=== PATIENT | male | born 1990 | race Caucasian/White ===

== ENCOUNTER 2021-02-12 13:18 | Emergency (ER) | payer OTHER, SELFPAY ==
[2021-02-12 13:20] VITALS: BP 131/80; PULSE 78; RESP 20; TEMP 36.3; O2SAT 100
--- NOTE | 2021-02-12 14:44 | ED.DENTAL ---
HPI - Dental/Oral General Chief complaint: Dental/Oral Stated complaint: tooth Time Seen by Provider: 02/12/21 14:23 Source: patient History of Present Illness HPI Narrative: Patient presents with right lower jaw pain. Reports a history of these dental filling falling out several months ago has been treated with antibiotics he has been trying to get into see a dentist that his tooth pulled and has an appointment scheduled for April. Over the past few days he has had increasing pain around that tooth with lower jaw swelling. His pain is achy, radiates up into his ear, worse with chewing or moving his jaw. Denies any swelling denies any fevers he denies any shortness of breath. MD Complaint: tooth pain Teeth map: 1. pain Related Data Allergies Allergy/AdvReac Type Severity Reaction Status Date / Time No Known Allergies Allergy Verified 02/12/21 13:23 Review of Systems Review of Systems: CONSTITUTIONAL: Denies fever, chills, or sweats. EYES: Denies visual changes, redness, or discharge. ENT: Denies rhinorrhea, congestion, sore throat, or otalgia. CARDIOVASCULAR: Denies chest pain, palpitations, or edema. RESPIRATORY: Denies cough or dyspnea. GASTROINTESTINAL: Denies abdominal pain, nausea, vomiting, or diarrhea. GENITOURINARY: Denies dysuria or hematuria. SKIN: Denies rash or itching. MUSCULOSKELETAL: Denies back pain, joint pain, or myalgia. NEUROLOGIC: Denies headache, numbness, dizziness, or weakness. PSYCHIATRIC: Denies anxiety or depression. All systems reviewed & are unremarkable except as noted in HPI and below PMFSH Past Medical History Medical History (Updated 02/12/21 @ 15:00 by Manoj Chauhan MD) Dental abscess Patient denies significant medical history Social History Social History (Updated 02/12/21 @ 14:53 by Manoj Chauhan MD) Substance use: never Exam Narrative: GENERAL: Well-appearing, well-nourished, and in no acute distress. HEAD: Normocephalic, atraumatic. EYES: PERRLA and EOMI. ENT: Nares clear, no rhinorrhea or epistaxis. Mucous membranes moist. Fractured tooth 30 with mild edema and erythema in the area tenderness palpation of the tooth no tenderness with palpation under the tongue or under the mandible NECK: Supple. No masses. No JVD EXTREMITIES: Normal range of motion. No edema. SKIN: Warm, dry, no rash. NEURO: No focal deficits. Alert and oriented x3. PSYCH: Normal mood and affect. Course Vital Signs Vital signs: Vital Signs Temperature 36.3 C L 02/12/21 13:20 Pulse Rate 78 02/12/21 13:20 Respiratory Rate 20 02/12/21 13:20 Blood Pressure 131/80 02/12/21 13:20 Pulse Oximetry 100 02/12/21 13:20 Temperature 36.3 C L 02/12/21 13:20 Pulse Rate 78 02/12/21 13:20 Respiratory Rate 20 02/12/21 13:20 Blood Pressure 131/80 02/12/21 13:20 Pulse Oximetry 100 02/12/21 13:20 MDM - Dental/Oral MDM Narrative Medical decision making narrative: H&P as above, vss, pt looks clinically well, exam pain and swelling around tooth number 30, labs/img considered, symptomatic relief available as needed, on reevaluation pt continues to looks clinically well. Suspect dental abscess, dns osteomyelitis, severe sepsis, Chaitanya's angina. plan to tx/monitor as op w/ pcm f/u findings/plan discussed with pt, pt agree/comfortable with plan, return precautions given Discharge Plan Discharge Clinical Impression: Abscess, dental Patient Disposition: Home, Self-Care Condition: Improved Instructions: Antibiotic Form, Dental Abscess (ED) Additional Instructions: Please return if your symptoms worsen or fail to improve. If you develop a fever, can not eat/drink anything or if you have any other concerns. Prescriptions: New amoxicillin-pot clavulanate [Augmentin] 875-125 mg tablet 1 tablet PO Q12H 7 Days Qty: 14 RF: 0 acetaminophen-codeine 300-15 mg tablet 1 tablet PO Q8H PRN (Reason: pain) Qty: 14 RF: 0 Follow-up/Referrals: Ratna Retana M
== END 2021-02-12 15:11 | disposition home or self-care (01) ==
PROVIDERS: Emergency Provider Emergency Medicine; PCP Family Medicine
DX: K04.7 Periapical abscess without sinus (principal)
CPT/HCPCS: 99283